=== PATIENT | male | born 1960 | race Caucasian/White ===

== ENCOUNTER 2016-10-07 18:41 | Emergency (ER) ==
[2016-10-07] MEDS ORDERED: ASPIRIN PO STA (19:06)
--- NOTE | 2016-10-07 19:16 | EKG Report ---
Test Performed on : 10/07/2016 7:01:54 PM Test Reason : CHEST PAIN Blood Pressure : / mmHG Vent. Rate : 080 BPM Atrial Rate : 080 BPM P-R Int : 140 ms QRS Dur : 086 ms QT Int : 340 ms P-R-T Axes : 045 011 041 degrees QTc Int : 392 ms Normal sinus rhythm. Normal ECG No previous ECGs available Unconfirmed Result
[2016-10-07 19:19] LABS: MANUAL DIFF NEEDED? NO
[2016-10-07 19:24] LABS: BASO% 0.4 % (0.0-0.8); EOS# 0.43 X1000 (0.0-0.7); EOS% 3.1 % (0.0-10.0); HEMATOCRIT 50.8 % (42.0-52.0); HEMOGLOBIN 17.3 g/dL (14.0-18.0); IMM GRAN# 0.03 X1000 (0.0-0.04); IMM GRAN% 0.2 % (0.0-0.5); LYMPH# 3.83 X1000 (1.2-3.4); LYMPH% 27.7 % (20.5-51.1); MCH 30.6 PG (27-31); MCHC 34.1 g/dL (33-37); MCV 89.8 FL (81-99); MONO% 6.5 % (1.7-9.3); MPV 9.7 FL (7.4-10.4); NEUT% 62.1 % (42.2-75.2); PLT 291 X1000 (130-400); RBC 5.66 XMIL (4.7-6.1)
--- NOTE | 2016-10-07 19:35 | PROVIDER DOCUMENTATION ---
HPI-Chest Pain - General Source: patient - History of Present Illness-CP Location: reports: substernal Chest Pain Radiation: reports: no radiation Quality of Pain: reports: pressure Severity in ED: moderate Onset/Duration: 4 days ago Timing: still present Context/Activities at Onset: reports: light activity Modifying Factors: improves with: nothing Associated Symptoms: reports: shortness of breath. denies: fever/chills, nausea , vomiting Nitro Today/Relief: no nitro taken today Aspirin Treatment Today: no aspirin today <Ivon Goodman - Last Filed: 10/07/16 23:22> <Ronald Junior - Last Filed: 10/07/16 23:30> - General Chief Complaint: Chest Pain Stated Complaint: CHEST PAIN Time Seen by Provider: 10/07/16 19:15 Allergies/Adverse Reactions: Patient Allergies Allergy/AdvReac Type Severity Reaction Status Date / Time No Known Allergies Allergy Verified 10/07/16 19:06 Home Medications: Home Medication List Medication Instructions Recorded Confirmed Last Taken Type Metoprolol [Lopressor] 12.5 mg PO BID #30 tablet 10/07/16 Unknown Rx Nitroglycerin [Nitrostat] 0.4 mg SL ORDERED #10 tab.subl 10/07/16 Unknown Rx - History of Present Illness-CP Nature of Presenting Problem: 56 Y/O M presents to ED with Chest Pain. Pt states that last Friday, he was laying down, felt pressure on his hear, had to sit up to relieve the pain. States there was soreness to touch originally like if there was bruising without the bruise. States pain left and came back on Friday. States the pressure is still there with no radiation. States Family hx of heart disease. ( Ivon Goodman) Review of Systems - Adult - REVIEW OF SYSTEMS - ADULT Constitutional: denies: chills, fever Eyes: reports: no symptoms reported Ears, Nose, Mouth & Throat: reports: no symptoms reported Cardiovascular: reports: chest pain Respiratory: reports: shortness of breath. denies: cough Gastrointestinal: denies: abdominal pain, diarrhea, nausea, vomiting Genitourinary: reports: no symptoms reported Musculoskeletal: reports: no symptoms reported Integumentary: reports: no symptoms reported Neurological: denies: dizziness/vertigo, loss of balance, seizure Psychiatric: reports: no symptoms reported Endocrine: reports: no symptoms reported Hematologic/Lymphatic: reports: no symptoms reported Allergic/Immunologic: reports: no symptoms reported All Other Systems: Reviewed and Negative <RexIvon - Last Filed: 10/07/16 23:22> Past History - Adult - PAST MEDICAL HISTORY-ADULT Review of Records: reports: Old Records Reviewed, Nursing Assessment Review, Medications Reviewed, Social history reviewed & non-contributory. Major Childhood Illnesses: reports: denies history - PRIOR SURGERIES/PROCEDURES Surgical/Procedure History: reports: other (colonoscopy and heart cath) - IMMUNIZATION STATUS Childhood Immunizations: See Nurse Assessment Flu Vaccine: See Nurse Assessment - SOCIAL HISTORY Smoking: cigarettes, greater than 1 pack/day Substance Use: none/never Alcohol Use Frequency: occasionally Living Situation: family <[place],Ivon - Last Filed: 10/07/16 23:22> Physical Exam-General - PHYSICAL EXAM-ADULT Initial Vital Signs Reviewed: Yes - CONSTITUTIONAL General Appearance: appears well, alert, no apparent distress - EYES Eyes: PERRL/EOMI, pink conjunctivae, fundi clear, no AV nicking - HEAD, EARS, NOSE, MOUTH & THROAT HENMT: normocephalic/atraumatic, moist mucous membranes, normal ENT inspection, TMs normal, pharynx normal - NECK Neck: non-tender, full range of motion, supple, normal inspection - RESPIRATORY Respiratory: chest non-tender, lungs clear, normal breath sounds - CARDIOVASCULAR Cardiovascular: normal peripheral pulses, regular rate, rhythm - GASTROINTESTINAL (ABDOMEN) Abdominal Exam: normal bowel sounds, non tender, soft - LYMPHATIC Lymphatic: no adenopathy - MUSCULOSKELETAL Back Exam: normal inspection, no CVA tenderness, no vertebral tenderness Extremity: normal range of motion, non-tender - SKIN Integumentary: normal color, normal turgor, warm/dry - NEUROLOGIC Neurologic: air pollution compliance inspector II-XII nml as tested - PSYCHIATRIC Psych/Mental Status: normal mood/affect, normal thought content, normal thought process, oriented x 3 <Ivon Goodman - Last Filed: 10/07/16 23:22> Progress - EKG 1 Time of EKG reading by physician:: 19:01 EKG Read and Signed by:: Ronald Junior EKG Interpretation (*Must complete 3 of following elements*): Normal Rate: 80 Rhythm: NSR Comments: Normal ECG 2 Time of EKG reading by physician:: 21:12 EKG Read and Signed by:: Ronald Junior EKG Interpretation (*Must complete 3 of following elements*): Normal Rate: 71 Rhythm: NSR Prior EKG Comparison: unchanged from prior Comments: Normal ECG - CONSULTS/PCP/HOSPITALIST Notification #1 *Consult/PCP/Hospitalist*: Dr. Palacios Time Discussed: 23:19 Reason/Comments: Plan of Care Consult Disposition: F/U in office (10am) <Ivon Goodman - Last Filed: 10/07/16 23:22> <Ronald Junior - Last Filed: 10/07/16 23:30> - PLAN OF CARE/RESULTS Progress/Plan/Lab Results: Laboratory Tests 10/07/16 10/07/16 10/07/16 19:05 19:05 19:05 WBC RBC Hgb Hct MCV MCH MCHC RDW Std Deviation Plt Count MPV Immature Gran % (Auto) Neut % (Auto) Lymph % (Auto) Williamson % (Auto) Eos % (Auto) Baso % (Auto) Immature Gran # (Auto) Neut # (Auto) Lymph # (Auto) Williamson # (Auto) Eos # (Auto) Baso # (Auto) PT INR APTT (Factor Assay) D-Dimer Sodium 137 Potassium 4.2 Chloride 101 Carbon Dioxide 22 L Anion Gap 15 BUN 16 Creatinine 1.0 Estimated GFR/1.73 m2 > 60 BUN/Creatinine Ratio 16 Glucose 96 Calculated Osmolality 275 Calcium 10.0 Magnesium 2.0 Total Bilirubin 0.30 AST 23 ALT 24 Alkaline Phosphatase 69 Creatine Kinase 102 Troponin T < 0.010 Aid-Q-Hgvontxpnrv Pept 16 Total Protein 7.6 Albumin 4.5 Globulin 3.0 Albumin/Globulin Ratio 1.0 10/07/16 10/07/16 10/07/16 19:05 19:05 21:17 WBC 13.82 H RBC 5.66 Hgb 17.3 Hct 50.8 MCV 89.8 MCH 30.6 MCHC 34.1 RDW Std Deviation 13.0 Plt Count 291 MPV 9.7 Immature Gran % (Auto) 0.2 Neut % (Auto) 62.1 Lymph % (Auto) 27.7 Williamson % (Auto) 6.5 Eos % (Auto) 3.1 Baso % (Auto) 0.4 Immature Gran # (Auto) 0.03 Neut # (Auto) 8.57 H Lymph # (Auto) 3.83 H Williamson # (Auto) 0.90 H Eos # (Auto) 0.43 Baso # (Auto) 0.06 PT 13.0 INR 0.95 APTT (Factor Assay) 31.5 D-Dimer < 0.22 L Sodium Potassium Chloride Carbon Dioxide Anion Gap BUN Creatinine Estimated GFR/1.73 m2 BUN/Creatinine Ratio Glucose Calculated Osmolality Calcium Magnesium Total Bilirubin AST ALT Alkaline Phosphatase Creatine Kinase 88 Troponin T Qpt-A-Lqjutdzoymk Pept Total Protein Albumin Globulin Albumin/Globulin Ratio 10/07/16 21:17 WBC RBC Hgb Hct MCV MCH MCHC RDW Std Deviation Plt Count MPV Immature Gran % (Auto) Neut % (Auto) Lymph % (Auto) Williamson % (Auto) Eos % (Auto) Baso % (Auto) Immature Gran # (Auto) Neut # (Auto) Lymph # (Auto) Williamson # (Auto) Eos # (Auto) Baso # (Auto) PT INR APTT (Factor Assay) D-Dimer Sodium Potassium Chloride Carbon Dioxide Anion Gap BUN Creatinine Estimated GFR/1.73 m2 BUN/Creatinine Ratio Glucose Calculated Osmolality Calcium Magnesium Total Bilirubin AST ALT Alkaline Phosphatase Creatine Kinase Troponin T < 0.010 Hot-I-Xowzajldlfq Pept Total Protein Albumin Globulin Albumin/Globulin Ratio Orders Category Date Time Status Cardiac Monitoring DIRECTED Care 10/07/16 19:06 Active Oxygen Therapy- ED Nursing DIRECTED Care 10/07/16 19:06 Active Saline Loc NOW Care 10/07/16 19:06 Active CHEST-2 VIEWS [RAD] Stat Exams 10/07/16 19:06 Taken CBC WITH ELECTRONIC DIFF [HEME] Stat Lab 10/07/16 19:05 Completed CK PROFILE [SP CHEM] Stat Lab 10/07/16 19:05 Completed CK PROFILE [SP CHEM] Stat Lab 10/07/16 21:17 Completed COMPREHENSIVE METABOLIC PANEL [CHEM] Stat Lab 10/07/16 19:[address] D-D[address] [COAG] Stat Lab 10/07/16 19:05 Completed MAGNESIUM [CHEM] Stat Lab 10/07/16 19:05 Completed PRO B-NATRIURETIC PEPTIDE Stat Lab 10/07/16 19:05 Com[address]IME WITH INR [address] [COAG] Stat Lab 10/07/16 19:[address] [COAG] Stat Lab 10/07/16 19:05 Completed TROPONIN T Stat Lab 10/07/16 19:05 Completed TROPONIN T Stat Lab 10/07/16 21:17 Completed Aspirin Med 10/07/16 19:06 Discontinued 325 mg PO STAT STA EKG [EKG] Stat Ther 10/07/16 19:06 Draft EKG [EKG] Stat Ther 10/07/16 21:12 Draft Vital Signs - 24 hr 10/07/16 19:02 Temperature 98.5 F Pulse Rate 85 Respiratory 16 Rate O2 Sat by Pulse 95 Oximetry (Ivon Goodman) Departure - Departure Time of Disposition Order: 23:22 Certified Medical Emergency: Emergent <Ivon Goodman - Last Filed: 10/07/16 23:22> - Departure Time of Disposition Order: 23:26 Certified Medical Emergency: Emergent <Ronald Junior - Last Filed: 10/07/16 23:30> - Departure DIAGNOSIS: Chest pain Qualifiers: Chest pain type: unspecified Qualified Code(s): R07.9 - Chest pain, unspecified Disposition: HOME 01 Condition: Stable Prescriptions: Metoprolol [Lopressor] 12.5 mg PO BID #30 tablet Nitroglycerin [Nitrostat] 0.4 mg SL ORDERED #10 tab.subl Referrals: None,PCP [Primary Care Provider] - Marcelino Palacios MD [STAFF PHYSICIAN] - Attestation - Scribe Verification/Attestation Scribe:: Ivon Goodman Acting as Scribe for:: Ronald Junior Scribe documention review:: This chart was documented by a scribe and accurately reflects the service the provider performed and the decisions made by the provider. <Ivon Goodman - Last Filed: 10/07/16 23:22> Physician Attestation
[2016-10-07 19:48] LABS: INR 0.95 (0.86-1.15)
[2016-10-07 19:49] LABS: PTT PL 31.5 Seconds (22.6-43.9)
[2016-10-07 20:00] LABS: AGAP 15; ALBUMIN 4.5 g/dL (3.5-5.0); ALKALINE PHOSPHATASE 69 U/L (32-122); BUN 16 mg/dL (8-22); CHLORIDE 101 mmol/L (98-107); CK PROFILE 102 U/L (24-204); COSMO 275; GOT 23 U/L (10-34); GPT 24 U/L (10-44); POTASSIUM 4.2 mmol/L (3.5-5.1); SODIUM 137 mmol/L (136-145); TCO2 22 mmol/L (25-35); TOTAL PROTEIN 7.6 g/dL (6.3-8.3)
--- NOTE | 2016-10-07 21:20 | EKG Report ---
Test Performed on : 10/07/2016 9:12:00 PM Test Reason : 2 hr cardiac test Blood Pressure : / mmHG Vent. Rate : 071 BPM Atrial Rate : 071 BPM P-R Int : 138 ms QRS Dur : 088 ms QT Int : 374 ms P-R-T Axes : 032 012 043 degrees QTc Int : 406 ms Normal sinus rhythm. Normal ECG When compared with ECG of 07-OCT-2016 19:01, (Unconfirmed) No significant change was found Unconfirmed Result
[2016-10-07] MEDS ORDERED: LOPRESSOR PO ONE (23:21)
[2016-10-07 23:49] VITALS: BP 135/87
--- NOTE | 2016-10-08 07:54 | Diag Imaging Result Document ---
PROCEDURE NAME: CHEST-2 VIEWS - 10/07/2016 FRONTAL AND LATERAL CHEST, TWO VIEWS: COMPARISON: No comparison films. FINDINGS: The lungs are well expanded. The heart is not enlarged. The vessels are not distended. No pneumonia. No pleural effusions identified. No free air beneath the diaphragm. IMPRESSION: No acute abnormality.
== END 2016-10-07 23:49 | disposition home or self-care (01) ==
LOC: P.ED 18:41
DX: R07.89 Other chest pain (principal); R06.02 Shortness of breath; F17.210 Nicotine dependence, cigarettes, uncomplicated
CPT/HCPCS: 71020; 80053; 82550; 83735; 83880; 84484; 85025; 85379; 85610; 85730; 93005